=== PATIENT | female | born 1955 | race Caucasian/White ===

== ENCOUNTER → 2022-08-09 | Outpatient (CLI) | payer MEDICARE, OTHER ==
[~2022-08-09] MED LIST: ACDPT PO; CEPH500C PO; CYCL10TA45 PO; DEXL60CA5 PO; FOLI1TAB6 PO; HYDR1TAB75 PO; LANS30CA PO; NAPR-243 PO; TOLT4CAP PO; TRAM50TA2 PO; TRZ50T PO; VICODIN PO
--- NOTE | 2022-08-09 11:26 | Diagnostic Imaging Report ---
PROCEDURE: US right lower extremity venous. TECHNIQUE: Multiple real-time grayscale images were obtained over the right lower extremity in various projections. Additional spectral analysis and color Doppler duplex images were also obtained. INDICATION: Right leg pain and swelling The veins of the right leg have good color filling and compressibility. There is phasic flow and normal response to augmentation. There is a Lu's cyst in the popliteal fossa measures 4.8 x 2.3 x 3.2 cm. IMPRESSION: Lu's cyst. No evidence for deep vein thrombosis. Dictated by: Dictated on workstation # [id number]
== END ==
LOC: RAD 10:08
PROVIDERS: ATTEND Podiatrist Foot & Ankle Surgery
DX: M71.21 Synovial cyst of popliteal space [Baker], right knee (principal)